=== PATIENT | female | born 1980 | race Caucasian/White ===

== ENCOUNTER 2017-01-21 08:42 | Emergency (ER) | payer BC, OTHER ==
[~2017-01-21] VITALS: Ht 170.2 cm; Wt 88.5 kg
[~2017-01-21 08:42] MED LIST: ACHD5005 PO; DANDELION ROOT PO; HYDR-3820 PO; OMEP20CA12 PO; PHEN-566 PO
--- NOTE | 2017-01-21 09:38 | ED General ---
General Chief Complaint: Lower Extremity Stated Complaint: LEFT FOOT/LEG PAIN Nursing Triage Note: PT CO OF L FOOT PAIN, HAS HAD PREVIOUS SURGERY IN JUL. HAS SWELLING AND FEELS WARM Nursing Sepsis Screen: No Definite Risk Source of Information: Patient, Old Records Exam Limitations: No Limitations History of Present Illness Time Seen by Provider: 08:45 Initial Comments This 36 year old woman presents to the emergency room with complaints of left ankle pain and swelling that started a couple of weeks ago at her surgical site. She injured her foot last fall and had surgery to repair the ligament, tendon, and heel fracture injuries. She also reports having 3 episodes of shooting pain that radiates from the left heel up through the left buttocks. The pain is fairly intense. It is also accompanied by a sensation of needing to urinate as well as complete loss of strength and control in the right lower extremity. All 3 episodes have occurred over the past couple of days. She has some mild persistent paresthesia in the left foot. She also reports having a rather intense persistent headache at the left posterior skull base one week ago. No headaches since then. She is observed to be limping upon ambulation into the exam room. She denies any bowel or bladder control problems. Allergies and Home Medications Allergies Coded Allergies: meperidine (Unverified Allergy, Unknown, MUSCLE SPASMS, 03/08/16) metronidazole (Verified Allergy, Unknown, 01/21/17) Home Medications Methylprednisolone 4 Mg Tab.ds.pk, 4 MG PO UD, #1 Prescribed by: EHSAN CANCHOLA on 01/21/17 1838 Constitutional: no symptoms reported EENTM: see HPI Respiratory: no symptoms reported Cardiovascular: no symptoms reported Gastrointestinal: no symptoms reported Genitourinary: no symptoms reported Musculoskeletal: see HPI Skin: no symptoms reported Psychiatric/Neurological: See HPI Hematologic/Lymphatic: No Symptoms Reported Past Oneqbgq-Pyhsdv-Lpvptg Hx Patient Social History Alcohol Use: Occasionally Uses Recreational Drug Use: No Smoking Status: Never a Smoker Recent Foreign Travel: No Contact w/Someone Who Travel: No Recent Infectious Disease Expo: No Recent Hopitalizations: No Immunizations Up To Date Tetanus Booster (TDap): Less than 5yrs PED Vaccines UTD: Yes Surgeries HX Surgeries: Yes (WISDOM TEETH, HYSTERECTOMY) Surgeries: Abdominal (left lower quadrant mass resection), Hysterectomy, Orthopedic (posttraumatic left ankle and foot surgery) Respiratory Hx Respiratory Disorders: Yes Respiratory Disorders: Pneumonia Cardiovascular Hx Cardiac Disorders: No Neurological Hx Neurological Disorders: No Reproductive System : No Hx Reproductive Disorders: Yes Sexually Transmitted Disease: No HIV/AIDS: No Female 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 Genitourinary Hx Genitourinary Disorders: No Gastrointestinal Hx Gastrointestinal Disorders: No Musculoskeletal Hx Musculoskeletal Disorders: Yes (TENDON PROB HAND, L FOOT SURG) Endocrine Hx Endocrine Disorders: No HEENT HX ENT Disorders: No Cancer Hx Cancer: No Psychosocial Hx Psychiatric Problems: No Integumentary HX Skin/Integumentary Disorder: No Blood Transfusions Hx Blood Disorders: No Adverse Reaction to a Blood Tr: No Family Medical History Significant Family History: Heart Disease, COPD, Hypertension, Other Conditions /Hx Family Medial History: Family history: Cardiovascular disease 03 FATHER 03 MOTHER Family history: Hypertension 03 FATHER 03 MOTHER Family history: Thyroid disorder 03 MOTHER Heart disease 03 MOTHER History of - respiratory disease 03 MOTHER (COPD ) Physical Exam Vital Signs Vital Sign - Last 12Hours 01/21/17 08:50 Temp 98.0 Pulse 74 Resp 14 B/P (MAP) 133/88 Pulse Ox 94 Capillary Refill : Less Than 3 Seconds General Appearance: No Apparent Distress, WD/WN HEENT: PERRL/EOMI, Normal ENT Inspection Neck: Normal Inspection Respiratory: Lungs Clear, Normal Breath Sounds, No Accessory Muscle Use, No Respiratory Distress Cardiovascular: Regular Rate, Rhythm, No Edema, No Murmur Gastrointestinal: Non Tender, Soft Extremity: No Calf Tenderness, No Pedal Edema, Other (left lateral ankle swelling with mild tenderness. Positive pedal pulses. 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, Other (patellar deep tendon reflexes intact) Skin: Normal Color, Warm/Dry Progress/Results/Core Measures Results/Orders Lab Results Laboratory Tests Test 01/21/17 09:15 Range/Units White Blood Count 7.9 4.3-11.0 10^3/uL Red Blood Count 4.24 L 4.35-5.85 10^6/uL Hemoglobin 13.0 11.5-16.0 G/DL Hematocrit 38 35-52 % Mean Corpuscular Volume 90 80-99 FL Mean Corpuscular Hemoglobin 31 25-34 PG Mean Corpuscular Hemoglobin Concent 34 32-36 G/DL Red Cell Distribution Width 12.4 10.0-14.5 % Platelet Count 256 130-400 10^3/uL Mean Platelet Volume 10.1 7.4-10.4 FL Neutrophils (%) (Auto) 63 42-75 % Lymphocytes (%) (Auto) 28 12-44 % Monocytes (%) (Auto) 8 0-12 % Eosinophils (%) (Auto) 2 0-10 % Basophils (%) (Auto) 0 0-10 % Neutrophils # (Auto) 5.0 1.8-7.8 X 10^3 Lymphocytes # (Auto) 2.2 1.0-4.0 X 10^3 Monocytes # (Auto) 0.6 0.0-1.0 X 10^3 Eosinophils # (Auto) 0.1 0.0-0.3 10^3/uL Basophils # (Auto) 0.0 0.0-0.1 10^3/uL Erythrocyte Sedimentation Rate 19 0-20 MM/HR Sodium Level 140 135-145 MMOL/L Potassium Level 3.7 3.6-5.0 MMOL/L Chloride Level 105 98-107 MMOL/L Carbon Dioxide Level 29 21-32 MMOL/L Anion Gap 6 5-14 MMOL/L Blood Urea Nitrogen 7 7-18 MG/DL Creatinine 0.70 0.60-1.30 MG/DL Estimat Glomerular Filtration Rate > 60 BUN/Creatinine Ratio 10 Glucose Level 88 70-105 MG/DL Uric Acid 5.6 2.6-7.2 MG/DL Calcium Level 9.3 8.5-10.1 MG/DL Magnesium Level 1.9 1.8-2.4 MG/DL C-Reactive Protein High Sensitivity 0.45 0.00-0.50 MG/DL My Orders Orders - EHSAN CHERY MD Basic Metabolic Panel (01/21/17 09:08) Cbc With Automated Diff (01/21/17 09:08) Hs C Reactive Protein (01/21/17 09:08) Erythrocyte Sedimentation Rate (01/21/17 09:08) Saline Lock/Iv-Start (01/21/17 09:08) Uric Acid (01/21/17 09:08) Mri Lumbar Spine W/O Contrast (01/21/17 09:08) Ankle, Left, 3 Views (01/21/17 09:25) Magnesium (01/21/17 09:26) Vital Signs/I&O Blood Pressure Mean: 103 Progress Note : Progress Note Case was reviewed with Dr. Espinoza. He would like to see the patient in the clinic tomorrow. Contact information was provided for the patient to schedule an appointment. He also suggested prescribing a Medrol Dosepak to help alleviate her symptoms. Return precautions were discussed with the patient. Diagnostic Imaging Diagonstic Imaging: Xray Plain Films/CT/US/NM/MRI: ankle Comments Left ankle x-ray viewed by me and report reviewed. See report below: NAME: AYDEN MAYA [facility] REC#: [id number] PT STATUS: REG ER : 1980 PHYSICIAN: EHSAN CHERY MD ADMIT DATE: 01/21/17/ER Signed Date of Exam: 01/21/17 ANKLE, LEFT, 3 VIEWS INDICATION: Left ankle numbness. AP, oblique, and lateral views of left ankle are obtained. FINDINGS: No fracture or acute bony abnormality is seen. Joint spaces are unremarkable. IMPRESSION: Negative left ankle. Dictated by: Dictated on workstation # [id number] <Dictated by FAHEEM MARIN MD> Diagonstic Imaging: MRI Plain Films/CT/US/NM/MRI: other (lumbar spine) Comments MRI of the lumbar spine viewed by me and report reviewed. See report below: NAME: AYDEN MAYA [facility] REC#: [id number] PT STATUS: REG ER : 1980 PHYSICIAN: EHSAN CHERY MD ADMIT DATE: 01/21/17/ER Draft Date of Exam:01/21/17 MRI LUMBAR SPINE W/O CONTRAST PROCEDURE: MRI lumbar spine. TECHNIQUE: Multiplanar, multisequence MRI of the lumbar spine was performed without contrast. INDICATION: Low back pain with right leg weakness and left leg burning sensation, no known injury. COMPARISON: None. DISCUSSION: The vertebral bodies of the lumbar spine are normal in stature, alignment, and signal intensity. The conus medullaris is normal in position and morphology. The nerve roots of the cauda equina are unremarkable. The visualized paraspinal soft tissues are unremarkable. Degenerative changes as detail below: L1-L2, L2-L3, L3-L4: Negative. L4-L5: Moderate degenerative disc disease. Small diffuse disc bulge. Moderate facet arthropathy and ligamentum flavum thickening. Severe central canal stenosis. Prominent annular tear. No neural foraminal narrowing. L5-S1: Moderately advanced degenerative disc disease. Prominent diffuse disc bulge, facet arthropathy, and ligamentum flavum thickening contributing to severe central canal stenosis. There is a large annular tear present. No neural foraminal narrowing. IMPRESSION: 1. Prominent annular tears are noted at the L4-L5 and L5-S1 levels. 2. Degenerative disease within the lower lumbar spine contributes to severe central canal stenosis at the L4-L5 and L5-S1 levels. There is no neural foraminal narrowing identified. Dictated on workstation # [id number] Dict: 01/21/17 1108 Trans: 01/21/17 1114 [id number] Interpreted by: CIRA DARNELL MD Departure Impression Impression: Primary Impression: Lumbar spinal stenosis Additional Impression: Radiculopathy with lower extremity symptoms Disposition: 01 HOME, SELF-CARE Condition: Stable Departure-Patient Inst. Decision time for Depature: 11:32 Referrals: LINDA ESPINOZA DANIEL J MD (PCP/Family) Primary Care Physician Patient Instructions: Radiculopathy, Spinal Stenosis Add. Discharge Instructions: Return to care if symptoms worsen, especially if you have difficulty controlling bowels or bladder or you have persistent weakness in your legs. You 'll be contacted later today with more detailed instructions for follow-up with Dr. Espinoza. All discharge instructions reviewed with patient and/or family. Voiced understanding. Scripts Methylprednisolone (Medrol) 4 Mg Tab.ds.pk 4 MG PO UD, #1 PKG Prov: EHSAN CHERY MD 01/21/17 Copy Copies To 1: CARLITO ESPINOZA MD Copies To 2: LINDA ESPINOZA JOSHUA T MD Jan 21, 2017 09:38
[2017-01-21 09:39] LABS: BASOPHILS % (AUTO) 0 % (0-10); EOSINOPHILS # (AUTO) 0.1 10^3/uL (0.0-0.3); EOSINOPHILS % (AUTO) 2 % (0-10); LYMPHOCYTES # (AUTO) 2.2 X 10^3 (1.0-4.0); LYMPHOCYTES % (AUTO) 28 % (12-44); MEAN CORPUSCULAR HEMOGLOBIN 31 PG (25-34); MEAN CORPUSCULAR HGB CONC 34 G/DL (32-36); MEAN CORPUSCULAR VOLUME 90 FL (80-99); MEAN PLATELET VOLUME 10.1 FL (7.4-10.4); MONOCYTES # (AUTO) 0.6 X 10^3 (0.0-1.0); MONOCYTES % (AUTO) 8 % (0-12); NEUTROPHILS % (AUTO) 63 % (42-75); PLATELET COUNT 256 10^3/uL (130-400); RED BLOOD COUNT 4.24 10^6/uL (4.35-5.85); RED CELL DISTRIBUTION WIDTH 12.4 % (10.0-14.5); WHITE BLOOD COUNT 7.9 10^3/uL (4.3-11.0)
[2017-01-21 10:04] LABS: ANION GAP 6 MMOL/L (5-14); BLOOD UREA NITROGEN 7 MG/DL (7-18); BUN/CREATININE RATIO 10; CALCIUM 9.3 MG/DL (8.5-10.1); CARBON DIOXIDE 29 MMOL/L (21-32); CHLORIDE 105 MMOL/L (98-107); GFR ESTIMATED > 60; GLUCOSE 88 MG/DL (70-105); MAGNESIUM 1.9 MG/DL (1.8-2.4); POTASSIUM 3.7 MMOL/L (3.6-5.0); SODIUM 140 MMOL/L (135-145); URIC ACID 5.6 MG/DL (2.6-7.2); hs C REACTIVE PROTEIN 0.45 MG/DL (0.00-0.50)
--- NOTE | 2017-01-21 10:05 | Diagnostic Imaging Report ---
INDICATION: Left ankle numbness. AP, oblique, and lateral views of left ankle are obtained. FINDINGS: No fracture or acute bony abnormality is seen. Joint spaces are unremarkable. IMPRESSION: Negative left ankle. Dictated by: Dictated on workstation # [id number]
[2017-01-21 10:16] LABS: ERYTHROCYTE SEDIMENTATION RATE 19 MM/HR (0-20)
--- NOTE | 2017-01-21 11:15 | Diagnostic Imaging Report ---
PROCEDURE: MRI lumbar spine. TECHNIQUE: Multiplanar, multisequence MRI of the lumbar spine was performed without contrast. INDICATION: Low back pain with right leg weakness and left leg burning sensation, no known injury. COMPARISON: None. DISCUSSION: The vertebral bodies of the lumbar spine are normal in stature, alignment, and signal intensity. The conus medullaris is normal in position and morphology. The nerve roots of the cauda equina are unremarkable. The visualized paraspinal soft tissues are unremarkable. Degenerative changes as detail below: L1-L2, L2-L3, L3-L4: Negative. L4-L5: Moderate degenerative disc disease. Small diffuse disc bulge. Moderate facet arthropathy and ligamentum flavum thickening. Severe central canal stenosis. Prominent annular tear. No neural foraminal narrowing. L5-S1: Moderately advanced degenerative disc disease. Prominent diffuse disc bulge, facet arthropathy, and ligamentum flavum thickening contributing to severe central canal stenosis. There is a large annular tear present. No neural foraminal narrowing. IMPRESSION: 1. Prominent annular tears are noted at the L4-L5 and L5-S1 levels. 2. Degenerative disease within the lower lumbar spine contributes to severe central canal stenosis at the L4-L5 and L5-S1 levels. There is no neural foraminal narrowing identified. Dictated by: Dictated on workstation # [id number]
[2017-01-21 11:42] VITALS: BP 133/88
[2017-01-21] MEDS ORDERED: METH4TAB PO (14:25)
== END 2017-01-21 11:42 | disposition home or self-care (01) ==
LOC: EDUNIT# 08:42 → ER 08:45
DX: M48.06 Spinal stenosis, lumbar region (principal); M47.26 Other spondylosis with radiculopathy, lumbar region
CPT/HCPCS: 36415; 72148; 73610; 80048; 83735; 84550; 85025; 85652; 86141

== ENCOUNTER 2017-02-14 08:13 | Emergency (ER) | payer BC ==
[~2017-02-14] VITALS: Ht 172.7 cm; Wt 74.8 kg
[~2017-02-14 08:13] MED LIST changes: +METH4TAB PO
[2017-02-14] MEDS ORDERED: CYCL10TA9 PO (08:48)
[2017-02-14] MEDS ORDERED: GABA-488 PO (08:48)
--- NOTE | 2017-02-14 09:39 | ED General ---
General Chief Complaint: General Problems/Pain Stated Complaint: NUMBNESS IN LE Nursing Triage Note: c/o intermittant leg numbness x 3 weeks. Worse on left side. Reports intermittant pain to right abdomen as well. Pt had a recent MRI of her back with follow up by Dr Rosales. Nursing Sepsis Screen: No Definite Risk Source of Information: Patient Exam Limitations: No Limitations History of Present Illness Time Seen by Provider: 09:33 Initial Comments The patient is a 36-year-old white female who had been seen here on 01/21. At that time workup found that she had central spinal stenosis at 2 lumbar levels. Multiple annular tears were noted as well. She had an appointment arranged for the following day with Dr. Seth Espinoza a back surgeon on our staff. She states that she saw him and then saw Dr. ESPINOZA her personal physician. She wished to have a second opinion and this was arranged with Dr. Ilsa Rosales neurosurgeon in [place].. She was told by Dr. Rosales that he was not quite so clear to her that this was purely as a result of her central canal stenosis. She placed her on a muscle relaxant and gabapentin to be taken at bedtime. To this point there has been no benefit in that and she is having more symptoms on the right side at this time. There is a fear of falling and she has fallen. She has found that sleeping on the couch is best for her. Symptoms seem to be worse when standing. She was scheduled to have an out patient CT scan of the abdomen and pelvis to evaluate further relative to the complaints. Timing/Duration: Other (1 month or more) Allergies and Home Medications Allergies Coded Allergies: meperidine (Unverified Allergy, Unknown, MUSCLE SPASMS, 03/08/16) metronidazole (Verified Allergy, Unknown, 01/21/17) Home Medications Cyclobenzaprine HCl 10 Mg Tablet, 10 MG PO TID, (Reported) Gabapentin 300 Mg Capsule, 300 MG PO bedtime, (Reported) Methylprednisolone 4 Mg Tab.ds.pk, 4 MG PO UD, #1 Prescribed by: EHSAN CANCHOLA on 01/21/17 9136 Constitutional: see HPI EENTM: no symptoms reported Respiratory: no symptoms reported Cardiovascular: no symptoms reported Gastrointestinal: no symptoms reported Genitourinary: no symptoms reported Musculoskeletal: no symptoms reported Skin: no symptoms reported Psychiatric/Neurological: See HPI Hematologic/Lymphatic: No Symptoms Reported Immunological/Allergic: no symptoms reported Past Bmjqhzp-Yaavdi-Keumjm Hx Patient Social History Alcohol Use: Denies Use Recreational Drug Use: No Recent Foreign Travel: No Contact w/Someone Who Travel: No Recent Infectious Disease Expo: No Recent Hopitalizations: No Immunizations Up To Date Tetanus Booster (TDap): Less than 5yrs PED Vaccines UTD: Yes Surgeries HX Surgeries: Yes (WISDOM TEETH, HYSTERECTOMY) Surgeries: Abdominal, Hysterectomy, Orthopedic Respiratory Hx Respiratory Disorders: Yes Respiratory Disorders: Pneumonia Cardiovascular Hx Cardiac Disorders: No Neurological Hx Neurological Disorders: No Reproductive System Hx Reproductive Disorders: Yes Sexually Transmitted Disease: No HIV/AIDS: No Female 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 Genitourinary Hx Genitourinary Disorders: No Gastrointestinal Hx Gastrointestinal Disorders: No Musculoskeletal Hx Musculoskeletal Disorders: Yes (TENDON PROB HAND, L FOOT SURG) Endocrine Hx Endocrine Disorders: No HEENT HX ENT Disorders: No Cancer Hx Cancer: No Psychosocial Hx Psychiatric Problems: No Integumentary HX Skin/Integumentary Disorder: No Blood Transfusions Hx Blood Disorders: No Adverse Reaction to a Blood Tr: No Family Medical History Significant Family History: Heart Disease, COPD, Hypertension, Other Conditions /Hx Family Medial History: Family history: Cardiovascular disease 03 FATHER 03 MOTHER Family history: Hypertension 03 FATHER 03 MOTHER Family history: Thyroid disorder 03 MOTHER Heart disease 03 MOTHER History of - respiratory disease 03 MOTHER (COPD ) Physical Exam Vital Signs Vital Sign - Last 12Hours 02/14/17 08:35 Temp 97.3 Pulse 70 Resp 16 B/P (MAP) 135/11 Pulse Ox 98 O2 Delivery Room Air Capillary Refill : Less Than 3 Seconds General Appearance: Mild Distress, Moderate Distress Eyes: Bilateral Eye Normal Inspection HEENT: Normal ENT Inspection Neck: Full Range of Motion, Normal Inspection, Non Tender, Supple, Carotid Bruit Respiratory: Chest Non Tender, Lungs Clear, Normal Breath Sounds, No Accessory Muscle Use, No Respiratory Distress Cardiovascular: Regular Rate, Rhythm, No Edema, No Gallop, No JVD, No Murmur, Normal Peripheral Pulses Gastrointestinal: Normal Bowel Sounds, No Organomegaly, No Pulsatile Mass, Non Tender, Soft Back: Normal Inspection Extremity: Normal Capillary Refill, Normal Inspection, Normal Range of Motion, Non Tender, No Calf Tenderness, No Pedal Edema Progress/Results/Core Measures Results/Orders My Orders Orders - ANTONY BERNABE MD Fentanyl Injection (Sublimaze Injection (02/14/17 09:42) Fentanyl Injection (Sublimaze Injection (02/14/17 09:56) Ct Abdomen/Pelvis Wo (02/14/17 10:34) Medications Given in ED Current Medications Medications Dose Ordered Sig/Caryn Route Start Time Stop Time Status Last Admin Dose Admin Fentanyl Citrate 100 mcg STK-MED ONCE .ROUTE 02/14/17 09:42 02/14/17 09:47 DC 02/14/17 10:04 100 MCG Vital Signs/I&O Vital Sign - Last 12Hours 02/14/17 02/14/17 02/14/17 08:35 10:04 10:04 Temp 97.3 97.3 97.3 Pulse 70 Resp 16 B/P (MAP) 135/11 Pulse Ox 98 O2 Delivery Room Air Blood Pressure Mean: 52 Departure Communication Progress Notes [address] Ilsa Rosales neurosurgeon at [facility] in [place]. Included was the report on today's CT scan of abdomen and pelvis. She has agreed to see the patient in follow-up on February 14. Impression Impression: Primary Impression: spinal stenosis/intractable lower extremity pain Disposition: HOME, SELF-CARE Condition: Stable/Unchanged Departure-Patient Inst. Decision time for Depature: 12:03 Referrals: CARLITO ESPINOZA MD (PCP/Family) Primary Care Physician Patient Instructions: CHRONIC PAIN Add. Discharge Instructions: All discharge instructions reviewed with patient and/or family. Voiced understanding. Continue present regimen Appointment with Dr. Rosales on Saturday Keep a log of pain distribution, degree and activities at that time. Take this to Dr. Rosales office. ANTONY BERNABE MD February 14, 2017 09:39
[2017-02-14] MEDS ORDERED: fentaNYL INJECTION 100 MCG/2 ML AMP ONE ×2 (09:42→09:56)
--- NOTE | 2017-02-14 11:11 | Diagnostic Imaging Report ---
PROCEDURE: CT abdomen and pelvis without contrast. TECHNIQUE: Multiple contiguous axial images were obtained through the abdomen and pelvis without the use of intravenous contrast. INDICATION: Leg weakness. FINDINGS: The lung bases appears clear. The liver, the gallbladder, the spleen, the pancreas, and the adrenal glands appear unremarkable. The kidneys demonstrate no hydronephrosis. No urinary tract stones. The abdominal aorta is normal in caliber. No para-aortic significantly enlarged lymph node is seen. No bowel obstruction. The appendix is normal. No significant free fluid or fluid collection in the abdomen or pelvis seen. There is suggestion of prior hysterectomy. There is mild degenerative change at the SI joints, otherwise the osseous structures appear grossly unremarkable. IMPRESSION: No acute process. Dictated by: Dictated on workstation # [id number]
[2017-02-14 12:31] VITALS: BP 132/90
[2017-02-14 13:12] LABS: ALANINE AMINOTRANSFERASE 13 U/L (0-55); ALBUMIN 4.1 G/DL (3.2-4.5); ANION GAP 7 MMOL/L (5-14); ASPARTATE AMINO TRANSFERASE 14 U/L (5-34); BILIRUBIN,TOTAL 0.4 MG/DL (0.1-1.0); BLOOD UREA NITROGEN 8 MG/DL (7-18); BUN/CREATININE RATIO 11; CALCIUM 9.2 MG/DL (8.5-10.1); CARBON DIOXIDE 29 MMOL/L (21-32); CHLORIDE 102 MMOL/L (98-107); CREATININE SERUM 0.72 MG/DL (0.60-1.30); GFR ESTIMATED > 60; GLUCOSE 86 MG/DL (70-105); SODIUM 138 MMOL/L (135-145); TOTAL PROTEIN 7.2 G/DL (6.4-8.2); hs C REACTIVE PROTEIN 0.33 MG/DL (0.00-0.50)
== END 2017-02-14 12:31 | disposition home or self-care (01) ==
LOC: EDUNIT# 08:13 → ER 08:16
DX: M48.06 Spinal stenosis, lumbar region (principal); M54.16 Radiculopathy, lumbar region
CPT/HCPCS: 36415; 74176; 80053; 85652; 86141; 96372; 99281

== ENCOUNTER 2017-03-07 06:49 | Emergency (ER) | payer BC ==
[~2017-03-07] VITALS: Ht 170.2 cm; Wt 77.1 kg
[2017-03-07] MEDS: fentaNYL INJECTION 100 MCG/2 ML AMP IVP ONE (07:21)
[2017-03-07] MEDS: ONDANSETRON 4 MG/2 ML (SDV) Z0FRAN IVP ONE (07:21)
--- NOTE | 2017-03-07 07:52 | ED Back Pain ---
General Chief Complaint: Back Problems Stated Complaint: BACK SPASMS Nursing Triage Note: WHEELED INTO ROOM 07 HYPERVENTALATING WITH COMPLAINTS OF SEVER LOWER BACK PAIN THAT RADIATES INTO LEGS. PT COMPLAINS OF SEVERE BURNING AND NOT SLEEPING DURING THE NOC. SCHEDULED FOR A MRI THIS AM AT 7 BUT UNABLE TO TOLERATE IT. STATES SHE HAS TAKEN IBUPROFEN OFF AND ON WITH NO RELIEF. PT STATES SHE HAS VOMITED THIS AM. PTS MOTHER REPORTS PT HAVING RUPTURED DISKS WITH TEARS THAT IS LEAKING FLUID CAUSING THE BURNING. 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 These are severe enough to cause her to have nausea and vomiting as well. I saw her on February 14 with complaints of severe back pain. She had previously had an MRI which showed prominent annular tears at the levels of L4 5 and L5-S1 in addition there was said to be severe central canal stenosis at those levels. She had previously seen Dr. Ilsa Rosales a neurosurgeon at [facility] in [place]. I spoke to Dr. Rosales by phone and arrange an appointment for the following week. The patient was to have an MRI with contrast here today and hopes to then be able to move forward with surgery as she has been absolutely miserable. She came to the emergency room because she was unable to hold still or lie down on her back. Timing/Duration: 1-3 Hours Pain/Injury Location: Back Radiation: Buttocks, Feet, Lower Legs, Upper Legs Method of Injury: Unknown Allergies and Home Medications Allergies Coded Allergies: meperidine (Unverified Allergy, Unknown, MUSCLE SPASMS, 03/08/16) metronidazole (Verified Allergy, Unknown, 01/21/17) Home Medications Cyclobenzaprine HCl 10 Mg Tablet, 10 MG PO TID, (Reported) Gabapentin 300 Mg Capsule, 300 MG PO bedtime, (Reported) Methylprednisolone 4 Mg Tab.ds.pk, 4 MG PO UD, #1 Prescribed by: EHSAN CANCHOLA on 01/21/17 1977 Constitutional: see HPI EENTM: no symptoms reported Respiratory: no symptoms reported Cardiovascular: no symptoms reported Gastrointestinal: no symptoms reported Genitourinary: no symptoms reported Musculoskeletal: back pain, muscle pain Skin: no symptoms reported Psychiatric/Neurological: No Symptoms Reported Past Ezujkyu-Igvyuf-Ruubvz Hx Patient Social History Alcohol Use: Denies Use Recreational Drug Use: No Smoking Status: Never a Smoker Recent Foreign Travel: No Contact w/Someone Who Travel: No Recent Infectious Disease Expo: No Recent Hopitalizations: No Immunizations Up To Date Tetanus Booster (TDap): Less than 5yrs PED Vaccines UTD: Yes Surgeries HX Surgeries: Yes (WISDOM TEETH, HYSTERECTOMY) Surgeries: Abdominal, Hysterectomy, Orthopedic Respiratory Hx Respiratory Disorders: Yes Respiratory Disorders: Pneumonia Cardiovascular Hx Cardiac Disorders: No Neurological Hx Neurological Disorders: No Reproductive System Hx Reproductive Disorders: Yes Sexually Transmitted Disease: No HIV/AIDS: No Female 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 [employer] History: Hysterectomy Genitourinary Hx Genitourinary Disorders: No Gastrointestinal Hx Gastrointestinal Disorders: No Musculoskeletal Hx Musculoskeletal Disorders: Yes (TENDON PROB HAND, L FOOT SURG) Endocrine Hx Endocrine Disorders: No HEENT HX ENT Disorders: No Cancer Hx Cancer: No Psychosocial Hx Psychiatric Problems: No Integumentary HX Skin/Integumentary Disorder: No Blood Transfusions Hx Blood Disorders: No Adverse Reaction to a Blood Tr: No Family Medical History Significant Family History: Heart Disease, COPD, Hypertension, Other Conditions /Hx Family Medial History: Family history: Cardiovascular disease 03 FATHER 03 MOTHER Family history: Hypertension 03 FATHER 03 MOTHER Family history: Thyroid disorder 03 MOTHER Heart disease 03 MOTHER History of - respiratory disease 03 MOTHER (COPD ) Physical Exam Vital Signs Vital Sign - Last 12Hours 03/07/17 07:03 Temp 98.0 Pulse 74 Resp 24 B/P (MAP) 119/83 Pulse Ox 99 Capillary Refill : Less Than 3 Seconds General Appearance: Moderate Distress HEENT: Normal ENT Inspection Neck: Normal Inspection Cardiovascular: Regular Rate, Rhythm, No Edema, No Gallop, No JVD, No Murmur, Normal Peripheral Pulses Respiratory: Chest Non Tender, Lungs Clear, Normal Breath Sounds, No Accessory Muscle Use, No Respiratory Distress, Accessory Muscle Use Gastrointestinal: Normal Bowel Sounds, No Organomegaly, No Pulsatile Mass, Non Tender, Soft Comments Pain to palpation over the sciatic distribution bilaterally. She also reports that she is having visual symptoms from the fentanyl and Zofran Progress/Results/Core Measures Results/Orders My Orders Orders - ANTONY BERNABE MD Fentanyl Injection (Sublimaze Injection (03/07/17 07:15) Ondansetron Injection (Zofran Injectio (03/07/17 07:15) Medications Given in ED Current Medications Medications Dose Ordered Sig/Caryn Route Start Time Stop Time Status Last Admin Dose Admin Fentanyl Citrate 100 mcg ONCE ONCE IVP 03/07/17 07:15 03/07/17 07:16 DC 03/07/17 07:21 100 MCG Ondansetron HCl 8 mg ONCE ONCE IVP 03/07/17 07:15 03/07/17 07:16 DC 03/07/17 07:21 8 MG Vital Signs/I&O Vital Sign - Last 12Hours 03/07/17 07:03 Temp 98.0 Pulse 74 Resp 24 B/P (MAP) 119/83 Pulse Ox 99 Blood Pressure Mean: 95 Departure Impression Impression: Primary Impression: degenerative disc disease with annular tears Disposition: HOME, SELF-CARE Condition: Stable/Unchanged Departure-Patient Inst. Decision time for Depature: 07:53 Referrals: CARLITO ESPINOZA MD (PCP/Family) Primary Care Physician Patient Instructions: Low Back Pain (DC) Add. Discharge Instructions: All discharge instructions reviewed with patient and/or family. Voiced understanding Present to outpatient to continue to MRI Keep appointment with ANTONY Haney MD Mar 07, 2017 07:52
[2017-03-07 07:58] VITALS: BP 121/80
== END 2017-03-07 07:58 | disposition home or self-care (01) ==
LOC: EDUNIT# 06:49 → ER 06:51
DX: M51.37 Other intervertebral disc degeneration, lumbosacral region (principal); M48.07 Spinal stenosis, lumbosacral region; G89.29 Other chronic pain

== ENCOUNTER → 2017-03-07 | Outpatient (CLI) | payer BC ==
[~2017-03-07] MED LIST changes: +CYCL10TA9 PO; +GABA-488 PO
[2017-03-07] MEDS: GADOBUTROL 10 MMOL/10 ML (GADAVIST) VIAL IV ONE (08:30)
--- NOTE | 2017-03-07 13:07 | Diagnostic Imaging Report ---
PROCEDURE: MRI lumbar spine with and without contrast. TECHNIQUE: Multiplanar, multisequence MRI of the lumbar spine was performed with and without contrast. INDICATION: Back pain with warm left leg and right leg weakness. 9 mL of Gadovist is administered intravenously. FINDINGS: There is a slightly prominent disc between S1 and S2. The alignment at the posterior spinal line is satisfactory. The vertebral body heights are preserved. There is disc desiccation at the L4-L5 and L5-S1 levels with no significant disc height loss seen. There is no significant marrow signal abnormality. The cauda equina and conus medullaris appear grossly unremarkable. The conus terminates at the lower T2 level. There is no abnormal enhancement along the nerve roots or in the spine. T12-L1: No disc herniation, no spinal canal or foraminal stenosis. L1-L2: No disc herniation. There is mild ligamentum flavum hypertrophy. No central canal, lateral recess or foraminal stenosis. L2-L3: No disc herniation. There is mild ligamentum flavum hypertrophy. No central canal, lateral recess or foraminal stenosis. L3-L4: No disc herniation. There is a mild facet and ligamentous hypertrophy with no central canal, lateral recess, or foraminal narrowing. L4-L5: There is a diffuse disc bulge and superimposed central disc protrusion with an annular tear. Moderate facet and ligamentous hypertrophy is seen. There is ndzuapjo-ka-yyqyhs central canal stenosis reducing the AP dimension of the canal to 6.8 mm and moderate bilateral recess stenosis worse on the left is also seen. There is minimal foraminal stenosis on the left and no significant foraminal stenosis on the right side. When compared to 01/21/2017, there is question of minimal improvement in the central canal stenosis although this could be technical related to a slightly different slice selection. L5-S1: There is a diffuse disc bulge. Superimposed annular tear and posterior central protrusion that has minimal caudal migrated component is present. There is eduw-xf-potswxwu central canal stenosis reducing the AP dimension of the canal to 8.1 mm. There is moderate facet hypertrophy. There is bilateral moderate lateral recess stenosis with question of minimal compression upon the descending S1 nerve roots. The neural foramina demonstrate bilateral jwvj-ak-faqeihfj narrowing. IMPRESSION: Degenerative changes predominantly at the L4-L5 and L5-S1 levels. Ybhbrzit-as-ptcvdj central canal stenosis is seen at L5-S1. Other findings described above. Dictated by: Dictated on workstation # [id number]
== END ==
LOC: RAD 07:49
PROVIDERS: ATTEND Neurological Surgery
DX: M54.9 Dorsalgia, unspecified (principal); M79.609 Pain in unspecified limb; M62.838 Other muscle spasm
CPT/HCPCS: 72158

== ENCOUNTER → 2017-03-20 | Outpatient (CLI) | payer BC ==
--- NOTE | 2017-03-21 13:27 | Diagnostic Imaging Report ---
EXAMINATION: MRI of the left ankle dated 03/20/2017. TECHNIQUE: Multiplanar, multisequence non contrast enhanced MR imaging of the left lower extremity was accomplished. INDICATION: Heel and ankle pain. Evaluate for possible plantar fasciitis. COMPARISON: Correlation made to previous left ankle films 01/21/2017 with correlation or comparison made to previous MRI dated 06/20/2016. FINDINGS: Again noted is a heterogeneous collection within the posterior aspect of the ankle just posterior to the talus. Amount of fluid has slightly decreased since the previous examination but the area is still fairly heterogeneous in appearance. A separate collection of fluid is seen at the posterior subtalar joint. This has also slightly decreased in size. A small amount of fluid in the anterior tibiotalar joint is noted. This has improved as well. The previously noted edema throughout the calcaneus is once again seen. No significant interval change is seen. Mild adjacent edema within the talus is noted. This is slightly improved. The remaining osseous structures demonstrate no significant abnormal signal changes. The talar dome is unremarkable. The deltoid ligament has improved in appearance. A small residual area of minimal high signal is noted but decreased from previous. There is heterogeneous fluid noted in the expected location of the calcaneofibular ligament. The anterior and posterior inferior tibiofibular ligaments are intact. The Achilles tendon is intact. The plantar fascia is unremarkable. The extensor and flexor tendons are intact. Peroneal tendons appear intact. However, there is mild prominence of the peroneus longus tendon which contains some internal high signal. These findings are not significantly changed from previous examination and could be due to mild tendinosis versus a small intrasubstance tear. No discontinuity is seen. IMPRESSION: 1. Some interval decrease in amount of fluid posteriorly at the ankle, but continued fluid and heterogeneity within the fluid is noted consistent with either underlying blood products or a chronic inflammatory process; clinical correlation for such a process is recommended. Given incomplete improvement, post contrast imaging may be useful if an inflammatory etiology is not identified. 2. Some residual high signal noted within the calcaneus and the talus nonspecific perhaps due to reactive change. 3. Ligaments and tendons are as discussed above. Dictated by: Dictated on workstation # [id number]
== END ==
LOC: RAD 16:05
PROVIDERS: ATTEND Orthopaedic Surgery
DX: M72.2 Plantar fascial fibromatosis (principal)

== ENCOUNTER → 2019-06-01 | Outpatient (CLI) | payer BC, OTHER ==
[~2019-06-01] MED LIST changes: -OMEP20CA12 PO; +OMEP20CA13 PO
--- NOTE | 2019-06-01 17:17 | Diagnostic Imaging Report ---
PROCEDURE: US Non-ob pelvis comp/trans. TECHNIQUE: Multiple real-time grayscale images were obtained of the pelvis in various projections endovaginally. Transabdominal imaging was also performed. INDICATION: Pelvic pain. FINDINGS: The uterus is surgically absent. Both ovaries are normal in size and morphology and demonstrate normal blood flow. There are small follicles in both ovaries. There are no adnexal masses. There is no free pelvic fluid. IMPRESSION: Unremarkable pelvic ultrasound status post hysterectomy. Dictated by: Dictated on workstation # [id number]
--- NOTE | 2019-06-01 22:31 | Diagnostic Imaging Report ---
INDICATION: Screening. The current study was also evaluated with a Computer Aided Detection (CAD) system. 3-D Tomographic imaging was also performed. No prior examinations are available for comparison. This is a baseline exam. FINDINGS: There are scattered fibroglandular densities bilaterally. There are a few benign-type calcifications. There is no dominant mass, spiculated lesion, or suspicious calcification identified. The skin, nipples, and axillae are unremarkable. IMPRESSION: Benign. ACR BI-RADS Category 2: Benign findings. Result letter will be mailed to the patient. Note: At least 10% of breast cancer is not imaged by mammography. Dictated by: Dictated on workstation # [id number]
== END ==
LOC: RAD 11:08
PROVIDERS: ATTEND Family Medicine
DX: Z12.31 Encounter for screening mammogram for malignant neoplasm of breast (principal); R10.2 Pelvic and perineal pain; Z90.710 Acquired absence of both cervix and uterus
CPT/HCPCS: 76830; 76856; 77067

== ENCOUNTER 2019-09-10 05:30 | Outpatient (CLI) | payer BC, OTHER ==
[~2019-09-10] VITALS: Ht 170.2 cm; Wt 81.8 kg
[2019-09-10] MEDS ORDERED: LEFL20TA18 PO (15:35)
== END 2019-09-10 15:42 | disposition home or self-care (01) ==
LOC: PREOP 05:30
PROVIDERS: ATTEND Podiatrist Foot & Ankle Surgery
DX: Z01.818 Encounter for other preprocedural examination (principal)

== ENCOUNTER → 2020-11-11 | Outpatient (CLI) | payer OTHER ==
[~2020-11-11] MED LIST changes: +ACHYD1T PO; +GADOBUTROL 7.5 MMOL/7.5 ML (GADAVIST) VIAL IV ONE; -HYDR-3820 PO; +LEFL20TA18 PO; -OMEP20CA13 PO; +OMEP20CA18 PO
--- NOTE | 2020-11-11 10:51 | Diagnostic Imaging Report ---
EXAM: MRI BRAIN ORBITS W/WO CON INDICATION: Vision loss and right eye. Possible multiple sclerosis. COMPARISON: None. FINDINGS: Dedicated sequences of the orbits demonstrate normal morphology with no suspicious mass or enhancement. Specifically, the optic nerves are symmetric bilaterally and demonstrate no suspicious enhancement. There are extensive T2 hyperintensities in the supratentorial periventricular and subcortical white matter. There are also abnormal T2 hyperintensities in the bilateral aarti and right middle cerebellar peduncle. A T2 hyperintensity in the right occipital lobe measuring 0.6 cm demonstrates active enhancement. There is also active enhancement in the splenium of the corpus callosum measuring 0.8 cm and adjacent parieto-occipital white matter measuring 1.0 cm. Active enhancement centrally in the right frontal lobe measuring 0.9 cm. Normal morphology of the major midline structures, sella, posterior fossa and cerebellar pontine angle. No hydrocephalus or extra-axial fluid collections. Normal intracranial flow voids. Paranasal sinuses and mastoids are clear. Normal bone marrow signal. IMPRESSION: 1. Extensive T2 hyperintensities in the supra and infratentorial white matter demonstrating a distribution strongly suspicious for a demyelinating process. Some of these lesions also demonstrate active enhancement. 2. Negative dedicated sequences of the orbits. Specifically, the optic nerves are normal. Dictated by: Dictated on workstation # [id number]
== END ==
LOC: RAD 08:00
PROVIDERS: ATTEND Optometrist
DX: H54.7 Unspecified visual loss (principal)
CPT/HCPCS: 70553

== ENCOUNTER → 2023-05-30 | Outpatient (CLI) | payer OTHER ==
[~2023-05-30] MED LIST changes: +CYCL10TA25 PO; -CYCL10TA9 PO; -GADOBUTROL 7.5 MMOL/7.5 ML (GADAVIST) VIAL IV ONE
--- NOTE | 2023-05-30 14:39 | Diagnostic Imaging Report ---
Indication: Routine screening. Comparison is made with prior mammogram from 06/01/2019. 2-D and 3-D bilateral screening mammography was performed with CAD. The current study was also evaluated with a Computer Aided Detection (CAD) system. Both breasts are heterogeneously dense, limiting the sensitivity of mammography. The parenchymal pattern is stable. No mass or malignant-appearing microcalcifications are seen. There are benign calcifications bilaterally. Axillae are unremarkable. IMPRESSION: BI-RADS Category 2 No mammographic features suspicious for malignancy are identified. ACR BI-RADS Category 2: Benign findings. Result letter will be mailed to the patient. Note: At least 10% of breast cancer is not imaged by mammography. Dictated by: Dictated on workstation # [id number]
--- NOTE | 2023-05-30 19:42 | Diagnostic Imaging Report ---
PROCEDURE: Pelvic comp/transvaginal sonogram. TECHNIQUE: Complete transabdominal and transvaginal pelvic ultrasound was performed. In addition, limited pelvic Doppler was performed. INDICATION: Pelvic pain. Patient has had prior hysterectomy. The uterus is surgically absent. Right ovary measures 3.2 x 2.2 x 3.3 cm and the left ovary measures 2.1 x 2.2 x 1.7 cm. Right ovary does contain a 3.1 cm cyst. This appears to be fairly simple. There is normal blood flow to both ovaries. No free fluid is identified. IMPRESSION: 1. Status post hysterectomy. 2. 3.1 cm simple right ovarian cyst. Dictated by: Dictated on workstation # [id number]
== END ==
LOC: RAD 11:21
PROVIDERS: ATTEND Family Medicine
DX: Z12.31 Encounter for screening mammogram for malignant neoplasm of breast (principal); N83.201 Unspecified ovarian cyst, right side; Z90.710 Acquired absence of both cervix and uterus
CPT/HCPCS: 76830; 76856; 77063; 77067